=== PATIENT | female | born 1980 | race Caucasian/White ===

== ENCOUNTER 2025-02-01 21:46 | Emergency (ER) | payer MEDICAID ==
[~2025-02-01] VITALS: Ht 157.5 cm; Wt 55.0 kg
[2025-02-01 21:49] VITALS: O2SAT 99
[2025-02-02 00:36] VITALS: BP 127/83; PULSE 81; RESP 19; TEMP 36.7; O2SAT 98
== END 2025-02-02 00:37 | disposition home or self-care (01) ==
LOC: ER 21:53
DX: F41.9 Anxiety disorder, unspecified (principal); F31.9 Bipolar disorder, unspecified
CPT/HCPCS: 99283